=== PATIENT | male | born 1990 | race Caucasian/White ===

== ENCOUNTER 2017-03-26 08:30 | Outpatient (RCR) | payer BC | END 2017-03-29 | disposition home or self-care (01) | LOC: PTY 08:30 | DX: M54.9 Dorsalgia, unspecified (principal); M54.5 Low back pain | CPT/HCPCS: 97110; 97140; 97162; G0283 ==

== ENCOUNTER 2017-04-24 09:41 | Outpatient (RCR) | payer BC | END 2017-04-29 | disposition home or self-care (01) | LOC: PTY 09:41 | DX: M54.5 Low back pain (principal) | CPT/HCPCS: 97110; 97140; G0283 ==